=== PATIENT | male | born 2000 | race Two or more races ===

== ENCOUNTER 2024-07-13 20:11 | Emergency (ER) | payer OTHER ==
[~2024-07-13] VITALS: Ht 172.7 cm; Wt 81.8 kg
[2024-07-13] MEDS: ONDANSETRON ODT 4 MG TAB PO ONE (20:39)
[2024-07-13 21:25] LABS: Urine Bacteria None Seen /hpf (None Seen)
[2024-07-13 21:43] LABS: Barbiturate Scree,Urine Neg (NEGATIVE)
[2024-07-13 21:50] LABS: Urine Blood Negative /uL (Negative); Urine Budding Yeast OCCASIONAL /hpf (None Seen); Urine Clarity Turbid (Clear); Urine Color Yellow (Yellow); Urine Mucus MODERATE (None Seen); Urine Protein, UAD 2+ (Negative); Urine Specific Gravity 1.043 (1.001-1.035); Urine Squamous Epithelial Cell FEW /hpf (<5); Urine Urobilinogen 2 mg/dL (Negative); Urine WBC 2 /hpf (0 - 3)
[2024-07-13 21:50] LABS: COVID19 ANTIGEN SOFIA FIA NEGATIVE (NEGATIVE)
[2024-07-13 21:51] LABS: Rapid Influenza A Negative (Negative); Rapid Influenza B Negative (Negative)
[2024-07-13 22:05] LABS: Amphetamine Screen, Urine Neg (NEGATIVE); Benzodiazephine Screen, Urine Neg (NEGATIVE); Cannabinoid Screen, Urine Pos (NEGATIVE); Cocaine Screen, Urine Neg (NEGATIVE); Opiate Scree,Urine Neg (NEGATIVE); Phencyclidine Screen, Urine Neg (NEGATIVE)
[2024-07-13] MEDS ORDERED: METO-281 PO (22:31)
[2024-07-13] MEDS ORDERED: ZOFR4T PO (22:31)
--- NOTE | 2024-07-13 22:31 | ED.PDOC ---
GI ASSESSMENT HPI Comments Patient is an otherwise healthy 24-year-old male who arrives the ED today with complaints of diffuse abdominal pain, nausea, vomiting and diarrhea that began approximately 1 hour after eating some leftover turkey and side dishes today. Patient states that he thinks that may be some with the dishes were left out too long. Patient denies any fever. Patient was hypertensive, tachycardic and actively vomiting at arrival. Chief Complaint: Nausea/Vomiting Time Seen by MD: 20:16 Reviewed Notes: Nurses Notes Allergies: Coded Allergies: NO KNOWN ALLERGIES (Unverified , 07/13/24) Home Meds Active Scripts Metoclopramide Hcl (Reglan) 10 Mg Tab, 10 MG PO Q8HP PRN, #10 TAB Prov:ERICH WYATT PAC 07/13/24 Ondansetron Odt 4MG Tab (ZOFRAN PO) 4 Mg Tb, 4 MG PO Q6HP PRN, #15 TAB ODT TAB-DISSOLVE IN MOUTH, THEN SWALLOW Prov:ERICH WYATT [facility] 07/13/24 Information Source: Patient, Friend Mode of Arrival: Ambulatory Timing: Hours Duration: Since onset Prehospital treatment: None Vomitus: Bilious, Food Particles, Soft, Watery Severity: Moderate Recent: Possible spoiled food Recent Hx of: None Pain Location: Epigastric Associated sign and symptoms: Nausea, Vomiting, Diarrhea Past Medical History PAST MEDICAL HISTORY: Denies Surgical History: Denies all surgeries Family History Family History: Reviewed,noncontributory to illness, No family hx of Cancer, No family hx of DM, No family hx of Heart elisabeth, No family hx of HTN, No family hx ofKidney elisabeth, No family hx of Liver elisabeth, No family hx of Lung elisabeth, No family hx of Stroke Social History Smoker: Non-Smoker Alcohol: Denies ETOH Use Drugs: Denies Drug Use Lives In: Home Constitutional: denies: chills, diaphoresis, fatigue, fever, malaise, sweats, weakness, others EENTM: denies: blurred vision, double vision, ear bleeding, ear discharge, ear drainage, ear pain, ear ringing, eye pain, eye redness, hearing loss, mouth pain, mouth swelling, nasal discharge, nose bleeding, nose congestion, nose pain, photophobia, tearing, throat pain, throat swelling, voice changes, others Respiratory: denies: cough, hemoptysis, orthopnea, SOB at rest, shortness of breath, SOB with excertion, stridor, wheezing, others Cardiovascular: denies: chest pain, dizzy spells, diaphoresis, Dyspnea on exertion, edema, irregular heart beat, left arm pain, lightheadedness, palpitations, PND, syncope, others Gastrointestinal: reports: abdominal pain, diarrhea, nausea, vomiting; denies: abdomen distended, blood streaked bowels, constipated, dysphagia, difficulty swa llowing, hematemesis, melena, poor appetite, poor fluid intake, rectal bleeding, rectal pain, others Genitourinary: denies: burning, dysuria, flank pain, frequency, hematuria, incontinence, penile discharge, penile sore, pain, testicle pain, testicle swelling, urgency, others Neurological: denies: dizziness, fainting, headache, left sided numbness, left sided weakness, numbness, paresthesia, pre-existing deficit, right sided numbness, right sided weakness, seizure, speech problems, tingling, tremors, weakness, others Musculoskeletal: denies: back pain, gout, joint pain, joint swelling, muscle pain, muscle stiffness, neck pain, others Integumetry: denies: bruises, change in color, change in hair/nails, dryness, laceration, lesions, lumps, rash, wounds, others Allergic/Immunocompromised: denies: Difficulty Healing, Frequent Infections, Hives, Itching, others Hematologic/Lymphatic: denies: anemia, blood clots, easy bleeding, easy bruising, swollen glands, others Endocrine: denies: excessive hunger, excessive sweating, excessive thirst, excessive urination, flushing, intolerance to cold, intolerance to heat, unex plained weight gain, unexplained weight loss, others Psychiatric: denies: anxiety, bipolar disorder, depression, hopeless, panic disorder, schizophrenia, sleepless, suicidal, others Physical Exam General Appearance: Moderate Distress (Due to active vomiting.), Normal HEENT: Normal ENT Inspection, Pharynx Normal, TMs Normal Neck: Full Range of Motion, Non-Tender, Normal, Normal Inspection Respiratory: Chest Non-Tender, Lungs Clear, No Accessory Muscle Use, No Respiratory Distress, Normal Breath Sounds Cardiovascular: No Edema, No JVD, No Murmur, No Gallop, Normal Peripheral Pulses, Regular Rate/Rhythm Breast Exam: Deferred Gastrointestinal: Other (Diffuse epigastric and left lower quadrant discomfort on palpation. Abdomen was reasonably soft. No pulsatile masses. 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 Was a procedure done?: No GI differential Dx Differential Diagnosis: Other (UTI, food poisoning, influenza a/B, COVID-19) X-Ray, Labs, Meds, VS Vital Signs Date Time Temp Pulse Resp B/P (MAP) Pulse Ox O2 Delivery O2 Flow Rate FiO2 07/14/24 01:37 89 07/13/24 22:45 98.7 92 12 161/95 (117) 100 98.7 07/13/24 22:45 92 12 100 Room Air 07/13/24 20:30 98.3 109 20 167/91 (116) 98 Lab Test 07/13/24 20:48 07/13/24 20:30 Range/Units Influenza Type A Antigen Negative Negative Influenza Type B Antigen Negative Negative SARS-CoV-2 Antigen (Rapid) Negative NEGATIVE Urine Color Yellow Yellow Urine Clarity Turbid H Clear Urine pH 6.0 5.0-9.0 Urine Specific Sebastian 1.043 H 1.001-1.035 Urine Protein 2+ H Negative Urine Ketones 2+ H Negative Urine Blood Negative Negative /uL Urine Nitrite Negative Negative Urine Bilirubin Negative Negative Urine Urobilinogen 2 H Negative mg/dL Urine Leukocyte Esterase Negative Negative /uL Urine RBC 3 0 - 3 /hpf Urine WBC 2 0 - 3 /hpf Urine Squamous Epithelial Cells Few <5 /hpf Urine Calcium Oxalate Crystals Few None Seen Urine Bacteria None seen None Seen /hpf Urine Mucus Moderate None Seen Urine Yeast (Budding) Occasional None Seen /hpf Urine Glucose Normal Normal mg/dL Urine Opiates Screen Neg NEGATIVE Urine Fentanyl Screen Neg NEGATIVE Urine Barbiturates Screen Neg NEGATIVE Urine Phencyclidine Screen Neg NEGATIVE Urine Amphetamines Screen Neg NEGATIVE Urine Benzodiazepines Screen Neg NEGATIVE Urine Cocaine Screen Neg NEGATIVE Urine Cannabinoids Screen Pos NEGATIVE Current Medications Medications (Trade) Dose Ordered Sig/[place] Route Start Time Stop Time Status Last Admin Ondansetron HCl (Zofran Po) 4 mg ONCE ONCE PO 07/13/24 20:30 07/13/24 20:31 DC 07/13/24 20:39 Ondansetron HCl (Zofran) 4 mg ONCE ONCE IM 07/13/24 22:30 07/13/24 22:31 DC 07/13/24 22:44 Metoclopramide HCl (Reglan Injection) 10 mg ONCE ONCE IM 07/13/24 23:00 07/13/24 23:01 DC 07/13/24 23:02 Diphenhydramine HCl (Benadryl Injection) 25 mg ONCE ONCE IM 07/13/24 23:00 07/13/24 23:01 DC 07/13/24 23:03 Prochlorperazine Edisylate (Compazine Inj) 10 mg ONCE ONCE IM 07/13/24 23:45 07/13/24 23:46 DC 07/13/24 23:47 Ondansetron HCl (Zofran) 4 mg ONCE ONCE IM 07/14/24 01:45 07/14/24 01:46 DC 07/14/24 01:48 X-Ray, Labs, Meds, VS Comment Will medicate the patient, patient stated that he was having some chest pain. All studies performed the ED today were evaluated by me personally. EKG rev ealed sinus rhythm with a rate of 89. Borderline right axis deviation with borderline prolonged QT interval. DE interval of 125 and QT interval of 385. Unremarkable EKG. Urinary and swabs were unremarkable for any systemic process. Patient appears to be suffering from a food poisoning event. Patient will be sent home with medication to help support his discomfort and I have advised the patient t utilize copious hydration and healthy nutrition over the next several days. Time of 1ST Reevaluation: 22:29 Reevaluation 1ST: Improved Consultation: PCP Patient Education/Counseling: Diagnosis, Treatment Family Education/Counseling: Diagnosis, Treatment Departure 1 Departure Time of Disposition: 22:29 Impression: Primary Impression: Food poisoning Disposition: 01 HOME / SELF CARE / HOMELESS Condition: Stable Additional Instructions: Advised patient utilize medication as needed for symptomatic relief as well as good hydration and healthy nutrition for the next few days. e-Prescriptions Metoclopramide Hcl (Reglan) 10 Mg Tab 10 MG PO Q8HP PRN, #10 TAB Prov: ERICH WYATT PAC 07/13/24 Ondansetron Odt 4MG Tab (ZOFRAN PO) 4 Mg Tb 4 MG PO Q6HP PRN, #15 TAB ODT TAB-DISSOLVE IN MOUTH, THEN SWALLOW Prov: ERICH WYATT PAC 07/13/24 Discharged With: Self, Friend Critical Care Note Critical Care Time?: No Stability Stability form required: No Heart Score Heart Score: Heart Score Response (Comments) Value History N/A 0 EKG N/A 0 Age N/A 0 Risk Factors N/A 0 Troponin N/A 0 Total 0 EDMUNDOERICH CHING PAC Jul 13, 2024 22:31
[2024-07-13] MEDS: ONDANSETRON HCL 4 MG/2 ML VIAL IM ONE (22:44)
[2024-07-13] MEDS: METOCLOPRAMIDE HCL 5MG/ml INJ 2ml VIAL IM ONE (23:02)
[2024-07-13] MEDS: diphenhdrAMINE HCL 50 MG/1 ML VL IM ONE (23:03)
[2024-07-13] MEDS ORDERED: PROCHLORPERAZINE 25 MG RECTAL SUPP PR ONE (23:45)
[2024-07-13] MEDS: PROCHLORPERAZINE EDISYLATE 5 MG/ML 2ML VIAL IM ONE (23:47)
[2024-07-14] MEDS: ONDANSETRON HCL 4 MG/2 ML VIAL IM ONE (01:48)
[2024-07-14 02:05] VITALS: BP 150/90; PULSE 97; RESP 16; TEMP 98.3; O2SAT 98
--- NOTE | 2024-07-14 10:54 | ECG ---
[facility] Test Date: 2024-07-14 Test Time: 01:37:30 Pat Name: JEREMIAH NUNN Department: ER Room: Gender: M Guard Immigration: SUSI : 2000 Requested By: ERICH WYATT Order Number: [id number] Reading MD: Rey Munoz Measurements Intervals Mackey Rate: 89 P: 75 MT: 125 QRS: 108 QRSD: 97 T: 57 QT: 385 QTc: 469 Interpretive Statements Sinus rhythm Borderline right axis deviation ST elev, probable normal early repol pattern Borderline prolonged QT interval Electronically Signed On 07-18-2024 16:09:07 PST by Rey Munoz Please click the below link to view image of tracing.
== END 2024-07-14 02:07 | disposition home or self-care (01) ==
LOC: ER 20:11
DX: A05.9 Bacterial foodborne intoxication, unspecified (principal); Z79.899 Other long term (current) drug therapy
CPT/HCPCS: 36415; 80307; 81001; 87426; 87804; 93005; 96372; 99284; J0780; J1200; J2405; J2765; Q0162